=== PATIENT | female | born 1985 | race Hispanic/Latino ===

== ENCOUNTER 2023-12-14 01:37 | Emergency (ER) | payer OTHER, SELFPAY ==
[2023-12-14 01:39] VITALS: BP 192/114
--- NOTE | 2023-12-14 02:37 | ED.GENMED ---
History of Present Illness
General
Chief Complaint: Extremity Pain (non-traumatic)
Source: patient and other
Exam Limitations: none
Time Seen by Provider: 12/14/23 02:40
History of Present Illness
History of Present Illness:
Pleasant 38-year-old female who presents with right knee pain. She states that she was at a [employer] tonight, in a pool when she started to develop right knee pain. Several months ago she experienced a subluxation of the patella. She did follow-up
with orthopedics and was given a clean bill of health. Tonight, without any further injury she developed this pain. She became concerned when she started to develop numbness in her toes. Again she denies any new trauma or inciting event.
Review of Systems
Review of Systems
Other source history: family
All Other Systems: ROS reviewed and negative except as documented in HPI and ROS
Constitutional: Reports no symptoms
EENT: Reports no symptoms
Respiratory: Reports no symptoms
Cardiac: Reports no symptoms
ABD/GI: Reports no symptoms
: Reports no symptoms
Musculoskeletal: Reports joint pain, joint swelling and muscle stiffness
Skin: Reports no symptoms
Neurological: Reports no symptoms
Endocrine: Reports no symptoms
Hematologic/Lymphatic: Reports no symptoms
Psychiatric: Reports no symptoms
Phy Exam
General Physical Exam
General Presentation: moderate distress
General age: appears stated age
General Skin: warm
General Habitus: normal
General Mental: alert
General Hydration: appears well hydrated
ENT Exam
ENT Exam: EOMI, pharynx normal, neck supple and normocephalic
Eye Exam
Eye Exam: PERRL, cornea clear and conjunctiva normal
Cardiovascular Exam
Cardiovascular Exam: regular rate/rhythm
Pulmonary Exam
Pulmonary Exam: lungs clear and no respiratory distress
Gastrointestinal Exam
Gastrointestinal Exam: normal bowel sounds, non tender, soft, no organomegaly, no pulsatile mass and non distended
Neurological Exam
Neurological Exam: alert, oriented x3, no motor deficits and speech normal
Musculoskeletal Exam
Musculoskeletal Exam: edema, joint swelling and neuro vasc intact
Skin Exam
Skin Exam: normal color, warm/dry, no rash and no petechia
Psychiatric Exam
Psychiatric Exam: normal mood/affect
Course
Orders/Labs/Results
Orders:
Orders
12/14/23 02:29
US Legs, Right [US Periph Venous LOWER Ext RT] Urgent
Comment:
Reason For Exam: numbness, pain behind right knee
12/14/23 02:36
Knee Immobilizer Right-Treatme ONCE
Oxycodone/Acetaminophen [Percocet 5/325] 1 tablet PO NOW STA
Knee, Right 4 or More Views [CR Knee- Right 4 Or More View*] Urgent
Comment:
Reason For Exam: knee pain, no recent injury
Vital Signs
Initial and Last Documented VS:
Initial Vital Signs
Temp Pulse Resp BP Pulse Ox
98 F 85 24 192/114 98
12/14/23 01:39 12/14/23 01:39 12/14/23 01:39 12/14/23 01:39 12/14/23 01:39
Last Documented Vital Signs
Temp Pulse Resp BP Pulse Ox
98 F 85 24 192/114 98
12/14/23 01:39 12/14/23 01:39 12/14/23 01:39 12/14/23 01:39 12/14/23 01:39
*Critical Care Note
Total Time (30-74mins, 75-104mins- exclusive of procedures): Not Applicable
Update Note
Update Note:
Verbal report by new car make ready mechanic shows no evidence of DVT. No fluid collection behind the knee. As evidence on physical exam she did see some fluid anteriorly. I did discuss this with patient. She does not want arthrocentesis of the knee. She
wishes to follow-up with her orthopedic surgeon. Her orthopedic surgeon is in [place]. I will provide the orthopedic surgeon on-call for her to call if she stays locally.
ED Attending Note
-
Portions of this chart may have been created with voice recognition software.� Occasional wrong word or��sound alike� substitutions may have occurred due to the inherent limitations of voice recognition software.
Discharge Plan
Departure
Patient Disposition: Home (Routine Discharge)
Date of Disposition: 12/14/23
Time of Disposition: 04:08
Patient with high blood pressure during this ER visit?: Yes
Condition: Good
Discharge Problem:
Internal derangement of knee, Fluid in knee
Instructions: Knee Pain ED, BLOOD PRESSURE
Prescriptions:
New
oxycodone-acetaminophen [Percocet] 5-325 mg tablet
1 tab PO Q6HPRN PRN (Reason: pain) Qty: 7 0RF
diclofenac sodium 75 mg tablet,delayed release (DR/EC)
75 mg PO BID Qty: 10 0RF
[facility]:
[facility] [[facility]]
Lencho Menendez MD [Active] - As needed
Stand Alone Forms: Return to Work
Activity Restrictions/Additional Instructions:
It was a pleasure meeting you and taking part in your care. We hope for your continued healing and wellness.
Please read discharge instructions in their entirety. However, they are for general education and may not describe your exact diagnosis at discharge. Information on your ER visit and medical conditions were discussed with you along with appropriate
follow up information...
If indicated, please take your medications as instructed and indicated on discharge paperwork.
Please schedule a follow up appointment as directed. Call to schedule an appointment
Please return to the emergency department with ANY change in, persisting, or worsening of symptoms. If any of your symptoms do not improve, or persist, or become more severe within 6-12 hours, please return to the emergency department for further
care.
Please return to the emergency department if you develop a headache, neck pain/stiffness, fever greater than 100.4F, chest pain, shortness of breath, persistent nausea, vomiting, slurred speech, difficulty walking, numbness/tingling, weakness, signs
of infection or any other symptoms that are worrisome to you.
If you have any questions or concerns please do not hesitate to call the Hospital at or E-mail me directly at [email or web address]
Interventions
Interventions:
*Risk Screen - Suicide Last Done: 12/14/23 01:39
*General Assessment Last Done: 12/14/23 02:47
*Neglect/Abuse Screening Last Done: 12/14/23 01:39
ED-Musculoskeletal Assessment Last Done: 12/14/23 02:47
ED- Neurological Assessment Last Done: 12/14/23 02:47
ED-Peripheral Vascular Assessment Last Done: 12/14/23 02:47
ED-Skin Assessment Last Done: 12/14/23 02:47
Discharge Date and Time
Print Language: PASHTO
[2023-12-14] MEDS: PERCOCET 5/325 1 TABLET PO (02:44)
[2023-12-14 02:47] VITALS: BMI 43.4
[2023-12-14 04:26] VITALS: BP 185/86
== END 2023-12-14 04:27 | disposition home or self-care (01) ==
LOC: EMR 01:37
PROVIDERS: EMERGENCY PHYSICIAN Student in an Organized Health Care Education/Training Program; FAMILY PHYSICIAN Emergency Medicine
DX: M23.91 Unspecified internal derangement of right knee (principal)
CPT/HCPCS: 99284; 29505; 73564; 93971

== ENCOUNTER → 2024-11-24 07:32 | Outpatient (REF) | payer BC, SELFPAY | LOC: PNTC 07:32 | PROVIDERS: ATTENDING PHYSICIAN Obstetrics & Gynecology | DX: Z36.0 Encounter for antenatal screening for chromosomal anomalies (principal); Z36.82 Encounter for antenatal screening for nuchal translucency | CPT/HCPCS: 76801; 76813 ==

== ENCOUNTER → 2024-12-22 07:06 | Outpatient (REF) | payer BC, SELFPAY | LOC: PNTC 07:06 | PROVIDERS: ATTENDING PHYSICIAN Obstetrics & Gynecology | DX: O09.529 Supervision of elderly multigravida, unspecified trimester (principal) | CPT/HCPCS: 76805 ==

== ENCOUNTER → 2025-01-30 08:48 | Outpatient (REF) | payer BC, SELFPAY | LOC: PNTC 08:48 | PROVIDERS: ATTENDING PHYSICIAN Obstetrics & Gynecology | DX: O09.529 Supervision of elderly multigravida, unspecified trimester (principal); O99.210 Obesity complicating pregnancy, unspecified trimester; D25.9 Leiomyoma of uterus, unspecified | CPT/HCPCS: 76811; 76817 ==

== ENCOUNTER → 2025-02-27 08:47 | Outpatient (REF) | payer BC, SELFPAY | LOC: PNTC 08:47 | PROVIDERS: ATTENDING PHYSICIAN Obstetrics & Gynecology | DX: O09.529 Supervision of elderly multigravida, unspecified trimester (principal); O99.210 Obesity complicating pregnancy, unspecified trimester | CPT/HCPCS: 76816 ==

== ENCOUNTER → 2025-03-27 08:50 | Outpatient (REF) | payer BC, SELFPAY | LOC: PNTC 08:50 | PROVIDERS: ATTENDING PHYSICIAN Student in an Organized Health Care Education/Training Program | DX: O99.210 Obesity complicating pregnancy, unspecified trimester (principal); O09.529 Supervision of elderly multigravida, unspecified trimester | CPT/HCPCS: 76816 ==

== ENCOUNTER → 2025-04-24 06:45 | Outpatient (REF) | payer BC, SELFPAY | LOC: PNTC 06:45 | PROVIDERS: ATTENDING PHYSICIAN Obstetrics & Gynecology; OTHER PHYSICIAN Student in an Organized Health Care Education/Training Program | DX: O09.523 Supervision of elderly multigravida, third trimester (principal); O99.213 Obesity complicating pregnancy, third trimester; E66.01 Morbid (severe) obesity due to excess calories | CPT/HCPCS: 59025; 76816 ==

== ENCOUNTER → 2025-05-01 06:56 | Outpatient (REF) | payer BC, SELFPAY | LOC: PNTC 06:56 | PROVIDERS: ATTENDING PHYSICIAN Obstetrics & Gynecology | DX: O09.523 Supervision of elderly multigravida, third trimester (principal); E66.01 Morbid (severe) obesity due to excess calories; O99.213 Obesity complicating pregnancy, third trimester | CPT/HCPCS: 59025; 76815 ==

== ENCOUNTER → 2025-05-08 06:51 | Outpatient (REF) | payer BC, SELFPAY | LOC: PNTC 06:51 | PROVIDERS: ATTENDING PHYSICIAN Obstetrics & Gynecology | DX: O09.523 Supervision of elderly multigravida, third trimester (principal); E66.01 Morbid (severe) obesity due to excess calories; O99.213 Obesity complicating pregnancy, third trimester | CPT/HCPCS: 59025; 76815 ==

== ENCOUNTER → 2025-05-12 13:04 | Outpatient (REF) | payer BC, SELFPAY ==
[2025-05-12 14:05] LABS: Hematocrit 31.0 % (37.0-47.0); Hemoglobin 10.1 g/dL (12.0-16.0); Mean Corp Hgb Conc. 32.6 g/dL (33.0-37.0); Mean Corpuscular Volume 88.3 fL (81.0-99.0); Platelet Count 268 10^3/uL (130-400); Red Cell Dist. Width 15.2 % (11.5-14.5); Reticulocyte Count 2.4 % (0.4-2.8)
[2025-05-12 14:38] LABS: Iron 80 ug/dl (37-170)
[2025-05-12 14:47] LABS: Total Iron Binding Capacity 403 ug/dl (265-497)
[2025-05-12 15:11] LABS: Ferritin 9.5 ng/ml (6.24-137)
== END ==
LOC: REG 13:04
PROVIDERS: ATTENDING PHYSICIAN Obstetrics & Gynecology; FAMILY PHYSICIAN Emergency Medicine
DX: D50.9 Iron deficiency anemia, unspecified (principal)
CPT/HCPCS: 36415; 82728; 83540; 83550; 85027; 85045

== ENCOUNTER → 2025-05-15 07:00 | Outpatient (REF) | payer BC, SELFPAY | LOC: PNTC 07:00 | PROVIDERS: ATTENDING PHYSICIAN Obstetrics & Gynecology | DX: O09.523 Supervision of elderly multigravida, third trimester (principal); E66.01 Morbid (severe) obesity due to excess calories; O99.213 Obesity complicating pregnancy, third trimester | CPT/HCPCS: 59025; 76815 ==

== ENCOUNTER → 2025-05-22 06:55 | Outpatient (REF) | payer BC, SELFPAY | LOC: PNTC 06:55 | PROVIDERS: ATTENDING PHYSICIAN Student in an Organized Health Care Education/Training Program | DX: O09.523 Supervision of elderly multigravida, third trimester (principal); E66.01 Morbid (severe) obesity due to excess calories; O99.213 Obesity complicating pregnancy, third trimester | CPT/HCPCS: 59025; 76816 ==

== ENCOUNTER 2025-05-29 19:27 | Inpatient (IN) | payer BC, SELFPAY ==
[2025-05-29 19:32] VITALS: BMI 49.2
[2025-05-29 20:26] LABS: Hematocrit 30.8 % (37.0-47.0); Hemoglobin 10.3 g/dL (12.0-16.0); Mean Corp Hgb Conc. 33.4 g/dL (33.0-37.0); Mean Corpuscular Volume 83.9 fL (81.0-99.0); Nucleated Red Blood Cells % 0 %; Platelet Count 290 10^3/uL (130-400); Red Cell Dist. Width 15.1 % (11.5-14.5)
[2025-05-29] MEDS: CYTOTEC 25 MICROGRAM VAG (20:34)
[2025-05-29 20:55] LABS: ALT (SGPT) 15 U/L (0-35); AST (SGOT) 16 U/L (14-36); Albumin 3.5 g/dl (3.5-5.0); Alkaline Phosphatase 121 U/L (38-126); Blood Urea Nitrogen 9 mg/dl (7-17); Calcium 9.3 mg/dl (8.4-10.2); Carbon Dioxide 24 mmol/L (22-30); Chloride 104 mmol/L (98-107); Estimated Creatinine Clearance > 125 ml/min; Glucose 107 mg/dl (70-99); Potassium 3.9 mmol/L (3.5-5.1); Sodium 132 mmol/L (135-145); Total Protein 6.6 g/dl (6.3-8.2); eGFR > 60.00
[2025-05-29 20:56] VITALS: BP 153/77
[2025-05-30] MEDS: CYTOTEC 50 MICROGRAM PO (00:35)
[2025-05-30] MEDS: PENICILLIN 110 UNITS IV (04:52)
[2025-05-30] MEDS: LR 1000 IV (04:52)
[2025-05-30] MEDS: STADOL 1 MG IV (04:57)
[2025-05-30] MEDS: CYTOTEC PO ×3 (06:23→13:10)
[2025-05-30] MEDS: ZOFRAN 4 MG IV (06:48)
[2025-05-30] MEDS: SUBLIMAZE 100 MCG EPIDURAL (08:00)
[2025-05-30] MEDS: FENTANYL/BUPIVACAINE 100 EPIDURAL (08:13)
[2025-05-30] MEDS: PENICILLIN 55 UNITS IV ×2 (09:30→13:09)
[2025-05-30] MEDS: PITOCIN 30 UNITS/NSS 500 ML IV ×2 (09:35→14:33)
[2025-05-30] MEDS: PEPCID 20 MG IV (09:59)
[2025-05-30] MEDS: TYLENOL 650 MG PO ×2 (16:03→22:04)
[2025-05-30] MEDS: MOTRIN 600 MG PO ×2 (16:04→22:04)
[2025-05-30] MEDS: PEPCID 10 MG PO (19:58)
[2025-05-30] MEDS: COLACE 100 MG PO (19:58)
[2025-05-31 04:23] LABS: Hematocrit 28.4 % (37.0-47.0); Hemoglobin 9.6 g/dL (12.0-16.0)
[2025-05-31] MEDS: PEPCID 10 MG PO ×2 (08:39→20:51)
[2025-05-31] MEDS: COLACE 100 MG PO ×2 (08:39→20:51)
[2025-05-31] MEDS: PRENATAL PLUS 1 TABLET PO (08:39)
[2025-05-31] MEDS: TYLENOL 650 MG PO ×3 (08:43→23:03)
[2025-05-31] MEDS: MOTRIN 600 MG PO ×3 (08:44→23:03)
[2025-05-31] MEDS: FEOSOL 325 MG PO (17:02)
[2025-06-01] MEDS: MOTRIN 600 MG PO (05:25)
[2025-06-01] MEDS: TYLENOL 650 MG PO (05:26)
[2025-06-01] MEDS: PRENATAL PLUS 1 TABLET PO (08:03)
[2025-06-01] MEDS: COLACE 100 MG PO (08:03)
[2025-06-01] MEDS: PEPCID 10 MG PO (08:03)
[2025-06-01] MEDS: FEOSOL 325 MG PO (08:04)
[2025-06-09 16:10] LABS: Syphilis/T. pallidum Ab Reflex Negative (Negative)
== END 2025-06-01 11:21 | disposition home or self-care (01) | DRG 807 ==
LOC: LDRP 19:27
PROVIDERS: Obstetrics & Gynecology; ADMITTING PHYSICIAN Student in an Organized Health Care Education/Training Program; FAMILY PHYSICIAN Emergency Medicine
PROC: 3E033VJ Introduction of Other Hormone into Peripheral Vein, Percutaneous Approach (ICD-10-PCS; 2025-05-29)
PROC: 3E0P7VZ Introduction of Hormone into Female Reproductive, Via Natural or Artificial Opening (ICD-10-PCS; 2025-05-29)
PROC: 10E0XZZ Delivery of Products of Conception, External Approach (ICD-10-PCS; 2025-05-30)
PROC: 0KQM0ZZ Repair Perineum Muscle, Open Approach (ICD-10-PCS; 2025-05-30)
DX: O69.89X0 Labor and delivery complicated by other cord complications, not applicable or unspecified (principal); Z37.0 Single live birth; O70.1 Second degree perineal laceration during delivery; Z3A.39 39 weeks gestation of pregnancy; L50.8 Other urticaria; O34.13 Maternal care for benign tumor of corpus uteri, third trimester; O99.214 Obesity complicating childbirth; D25.9 Leiomyoma of uterus, unspecified; O99.02 Anemia complicating childbirth; D64.9 Anemia, unspecified; O99.344 Other mental disorders complicating childbirth; F41.9 Anxiety disorder, unspecified; O99.824 Streptococcus B carrier state complicating childbirth; Z79.82 Long term (current) use of aspirin
CPT/HCPCS: 36415; 59025; 76815; 80053; 82570; 84156; 85014; 85018; 85025; 86780; 86850; 86900; 86901; 88307